=== PATIENT | female | born 1970 | race African-American/Black ===

== ENCOUNTER 2016-09-23 07:12 | Emergency (ER) | payer BC, OTHER ==
[~2016-09-23] VITALS: Ht 162.6 cm; Wt 88.0 kg
[~2016-09-23 07:12] MED LIST: AMLO10 PO; COUM5TAB PO; DIAZ2 PO; ENOX100P SQ; FERR325T PO; FLAG250T PO; HYDR-3580; IBUP-232 PO; LORTA10 PO; LORTS PO; SIMV20 PO; SIMV20TA PO; ZOFR4TAB3 PO
[2016-09-23 07:14] VITALS: BP 124/73; PULSE 97; RESP 20; TEMP 97.6; O2SAT 97
--- NOTE | 2016-09-23 07:51 | PD ---
HPI Chief Complaint: Laceration/Skin Injury Time Seen by Provider: 07:51 Travel History International Travel<30 days: No Contact w/Intl Traveler<30days: No Traveled to known affect area: No History of Present Illness HPI 46 year-old female with no significant medical history presents to the emergency department for evaluation of a laceration to her left second digit that occurred yesterday. Patient states every time she bends her finger begins to bleed again. Denies any fever or chills. Alterations in sensation. No limitations range of motion. No other symptoms to report. She is up-to-date on her tetanus vaccination. PFSH Past Medical History Anemia: Yes Asthma: Yes Blood Disorders: No Heart Rhythm Problems: No Cancer: No Cardiac Catheterization: No Cardiovascular Problems: No High Cholesterol: Yes Congestive Heart Failure: No Diabetes: No Endocrine: No Gastrointestinal Disorders: Yes (UMBILICAL HERNIA) Glaucoma: No Genitourinary: No Hepatitis: No Hiatal Hernia: No Hypertension: Yes Immune Disorder: No Musculoskeletal: Yes ("BACK PROBLEMS") Neurologic: No Psychiatric: No Reproductive: No Respiratory: Yes (PULMONARY EMBOLUS) Myocardial Infarction: No Thyroid Disease: Yes (HYPOACTIVE) Past Surgical History Cardiac Surgery: No Coronary Artery Bypass Graft: No Ear Surgery: No Endocrine Surgery: No Eye Surgery: No Genitourinary Surgery: No Gynecologic Surgery: Yes (HYSTERECTOMY, TUBAL LIGATION) Hysterectomy: Yes (07/03/10) Oral Surgery: No Pacemaker: No Thoracic Surgery: No Other Surgery: Yes Social History Alcohol Use: Yes (one glass wine a day) Tobacco Use: No Substance Use: No Allergies-Medications (Allergen,Severity, Reaction): Coded Allergies: Penicillin (Unverified Allergy, Severe, HALLUCINATIONS, SHAKING, 09/23/16) Reported Meds & Prescriptions Reported Meds & Active Scripts Active Ibuprofen 800 Mg Tab 800 Mg PO Q8H PRN Keflex (Cephalexin) 500 Mg Cap 500 Mg PO Q6H 5 Days Hydrocodone/Acetaminophen 10 mg/325 mg 10 Mg/325 Mg Tab 1 Tab PO Q4H Reported Zofran ODT (Ondansetron HCl) 4 Mg Tab 4 Mg PO Q6 Iron (Ferrous Sulfate) 325 Mg Tab 325 Mg PO DAILY Flagyl (Metronidazole) 250 Mg Tab 250 Mg PO Q8 Norvasc (Amlodipine Besylate) 10 Mg Tab 10 Mg PO DAILY Hydrocodone/Acetaminophen 7.5 mg/325 mg 7.5 Mg/325 Mg Tab 1 Tab .XX Q4HPRN 1 or 2 tabs as needed for pain Q/4. Simvastatin 20 Mg Tab 20 Mg PO HS Diazepam 2 Mg Tab 2 Mg PO HS Review of Systems Except as stated in HPI: all other systems reviewed are Neg Physical Exam Narrative GENERAL: Well-nourished, well-developed male patient in no acute distress SKIN: Warm and dry. 4 cm V-shaped flap on the lateral aspect of the right second digit. Well approximated. Bleeding is controlled. HEAD: Normocephalic. EYES: No scleral icterus. No injection or drainage. NECK: Supple, trachea midline. No JVD or lymphadenopathy. CARDIOVASCULAR: Regular rate and rhythm without murmurs, gallops, or rubs. RESPIRATORY: Breath sounds equal bilaterally. No accessory muscle use. MUSCULOSKELETAL: No cyanosis, or edema. Full flexion and extension of the affected digit. Sensation intact distal affected digit. Cap refill within normal limits. Data Data Last Documented VS Vital Signs Date Time Temp Pulse Resp B/P Pulse Ox O2 Delivery O2 Flow Rate FiO2 09/23/16 07:14 97.6 97 20 124/73 97 Room Air Orders Wound Care (09/23/16 07:43) MDM Medical Decision Making Medical Screen Exam Complete: Yes Emergency Medical Condition: Yes Medical Record Reviewed: Yes Differential Diagnosis Laceration superficial versus deep versus tendon injury versus avulsion versus abrasion Narrative Course 46 year-old female presents to emergency department for evaluation a laceration to the right second index finger. This is a clean cut. It was done yesterday. The skin is quite macerated around the area area to it is loosely approximated using Steri-Strips. It is placed in a splint. She is counseled on care. She agrees to return immediately with any acute worsening symptoms. Procedures Procedure Narrative LACERATION LOCATION right second digit LENGTH: 4 centimeter the flap NUMBER OF STITCHES/JAREN: Very strips REPAIR: The area of the laceration was prepped with Betadine and sterilely draped. The wound was copiously irrigated and explored without evidence of foreign body, tendon injury or neurovascular injury. The wound was closed using Steri-Strips. This was a single layer repair. A sterile dressing was applied. The patient was advised to keep the dressing clean and dry. Patient tolerated the procedure well. Diagnosis Primary Impression: Laceration of index finger of right hand without complication Referrals: Hand Surgeon Primary Care Physician Patient Instructions: Finger Laceration (ED), General Instructions Departure Forms: Tests/Procedures, Work Release Enter return to work date: Sep 25, 2016 Additional Instructions: Keep the area clean and dry You may shower Follow-up with her primary care provider Seeking specialty evaluation if symptoms persist Return immediately to the emergency department with any acute worsening symptoms Med/Other Pt SpecificInfo: Prescription(s) given Scripts Ibuprofen 800 Mg [id number] Mg PO Q8H PRN (Pain/Inflammation) #30 TAB Ref 0 Prov:Adelaida Ames 09/23/16 Cephalexin (Keflex)500 Mg [id number] Mg PO Q6H 5 Days Ref 0 Prov:Adelaida Ames 09/23/16 Disposition: 01 DISCHARGE HOME Condition: Stable Adelaida Ames Sep 23, 2016 07:51
[2016-09-23] MEDS ORDERED: IBUP800T23 PO (08:12)
[2016-09-23] MEDS ORDERED: CEPH-460 PO (08:12)
== END 2016-09-23 08:39 | disposition home or self-care (01) ==
LOC: NEPB 07:12
DX: S61.210A Laceration without foreign body of right index finger without damage to nail, initial encounter (principal); I10 Essential (primary) hypertension; E78.00 Pure hypercholesterolemia, unspecified; J45.909 Unspecified asthma, uncomplicated; D64.9 Anemia, unspecified; E03.9 Hypothyroidism, unspecified; W45.8XXA Other foreign body or object entering through skin, initial encounter; Y93.9 Activity, unspecified; Y92.9 Unspecified place or not applicable; Y99.9 Unspecified external cause status
CPT/HCPCS: 99283